=== PATIENT | male | born 1960 | race Caucasian/White ===

== ENCOUNTER → 2016-12-22 | Outpatient (CLI) | payer BC ==
[~2016-12-22] MED LIST: IOHEXOL 240 MG/ML 50ML VIAL. PO ONE; IOHEXOL 300 MG/ML 75 ML VIAL IV ONE
--- NOTE | 2016-12-22 11:06 | RAD ---
INDICATION: ESOPHAGEAL CARCINOMA COMPARISON: None. TECHNIQUE: Axial CT images were obtained through the chest, abdomen and pelvis. Intravenous contrast was utilized. FINDINGS: Chest: Mild cystic changes within the lungs. No evidence of pneumothorax. Calcified granulomas. No focal airspace consolidation to suggest pneumonia. Right mid lung pulmonary nodule anteriorly, 4 mm. Small pericardial fluid. Thoracic aorta is not dilated. Mild coronary artery calcific atherosclerosis. Mild prominence of esophageal wall but not well evaluated on this exam. Abdomen and pelvis: Abdominal aorta is not aneurysmal. Foci of calcific atherosclerosis are seen. No intrahepatic bile duct dilation. No definite worrisome hepatic mass. No peripancreatic edema. Splenic calcified granulomas. Nodular thickening of left adrenal gland, measures up to about 13 mm in thickness. Mildly prominent left extrarenal pelvis. Kidneys enhance symmetrically. Subcentimeter tiny right renal lesion, too small to characterize but a very commonly seen finding. Urinary bladder largely decompressed. Wall appears prominent but could be from decompression. Prostate calcifications. The appendix is not grossly dilated. No dilated loops of bowel suggest obstruction. Tiny fat-containing umbilical hernia. Degenerative changes spine. Subcentimeter sclerotic focus left pelvis. Mild superior endplate compression deformity or Schmorl's node at T11. IMPRESSION: Prominence of the esophageal wall is seen. Could be related to the patient's suspected esophageal neoplasm but not well evaluated on this exam. There are couple of small pulmonary nodules identified on the right measuring up to about 4 mm. Given the patient's history follow-up will be needed to ensure no growth. Nodular thickening of the left adrenal gland. Indeterminate in nature on this exam. If more complete characterization is desired adrenal protocol MRI could further evaluate. Urinary bladder is largely decompressed with prominent wall. This prominence of the wall could be secondary to lack of distention but would still correlate with symptoms in the region to ensure that there is not a pathologic process such as cystitis. PQRS Compliance Statement: One or more of the following individualized dose reduction techniques were utilized for this examination: 1. Automated exposure control 2. Adjustment of the mA and/or kV according to patient size 3. Use of iterative reconstruction technique
--- NOTE | 2016-12-22 12:39 | RAD ---
Radionuclide bone scan, 12/22/2016: History: Staging esophageal cancer Whole body imaging was performed following an IV injection of 27 mCi of technetium 99m MDP. No previous bone scan is available for comparison purposes. Activity of the radionuclide about the skeleton the major joints is symmetric. Minimally increased activity at both shoulders, elbows and wrists is compatible with arthritis. Minimally increased activity at the upper sternal level is probably due to degenerative change at the sternomanubrial articulation. Normal activity is present in both kidneys and the bladder. IMPRESSION: No specific evidence of osseous metastatic disease.
== END | disposition home or self-care (01) ==
LOC: NM 08:08
PROVIDERS: ATTEND Internal Medicine Hematology & Oncology
DX: C15.9 Malignant neoplasm of esophagus, unspecified (principal)
CPT/HCPCS: 71260; 74177; 78306; 96374; A9503; Q9966; Q9967

== ENCOUNTER → 2017-02-08 | Outpatient (CLI) | payer BC ==
[~2017-02-08] MED LIST changes: +ASPI-482 PO; +ATOR20TA58 PO; +CINN500C2 PO; +FISH1CAP PO; -IOHEXOL 240 MG/ML 50ML VIAL. PO ONE; -IOHEXOL 300 MG/ML 75 ML VIAL IV ONE; +LISI-334 PO; +METF-620 PO; +OMEP40CA5 PO; +SUCR1TAB35 PO
--- NOTE | 2017-02-08 15:16 | RESP ---
DATE OF SERVICE: 02/08/2017 The patient's FVC was 4.5, which is 100% predicted, FEV1 was 3.6, which is 107% predicted, the FEV1/FVC ratio was normal. No bronchodilators were given. Total lung capacity was normal at 107% predicted, residual volume 127% predicted. Diffusion capacity 119% predicted. IMPRESSION: 1. No evidence of any obstructive airway disease. 2. No bronchodilators were given. 3. Lung volumes with mild air trapping. 4. Normal diffusion capacity. SHARYN MONAE MD DR: KUSUM/fantasma JOB#: [id number] / [id number] TRAVIS Prado MD
== END | disposition home or self-care (01) ==
LOC: PF 08:10
PROVIDERS: ATTEND Thoracic Surgery (Cardiothoracic Vascular Surgery)
DX: Z01.818 Encounter for other preprocedural examination (principal)
CPT/HCPCS: 94010; 94729

== ENCOUNTER → 2017-02-22 | Outpatient (CLI) | payer BC | END | disposition home or self-care (01) | LOC: ECHO 08:17 | DX: Z01.810 Encounter for preprocedural cardiovascular examination (principal); I10 Essential (primary) hypertension; E78.5 Hyperlipidemia, unspecified | CPT/HCPCS: 78815; 93306; A9552 ==

== ENCOUNTER → 2017-03-05 | Outpatient (CLI) | payer BC ==
[2017-03-05 09:00] LABS: ADD MAN DIFF? NO; BASO % 0 % (0-3); EOS % 1 % (0-3); HEMATOCRIT 38.4 % (39.0-53.0); LYMPH # 0.4 x10^3/uL (1.0-4.8); LYMPH % 15 % (24-48); MEAN CORPUSCULAR HEMOGLOBIN 32 pg (25-35); MEAN CORPUSCULAR HGB CONC 34 g/dL (31-37); MEAN CORPUSCULAR VOLUME 95 fL (79-100); MONO # 0.5 x10^3/uL (0.0-1.1); MONO % 16 % (0-9); NEUT # 1.9 x10^3uL (1.8-7.7); NEUT % 67 % (31-73); PLATELET COUNT 118 x10^3/uL (140-400); RED BLOOD COUNT 4.05 x10^6/uL (4.30-5.70); WHITE BLOOD COUNT 2.9 x10^3/uL (4.0-11.0)
[2017-03-05 09:09] LABS: PARTIAL THROMBOPLASTIN TIME 24 SEC (24-38); PROTHROMBIN TIME PATIENT 12.7 SEC (11.7-14.0)
[2017-03-05 09:21] LABS: ALBUMIN/GLOBULIN RATIO 1.3 (1.0-1.7); ALK PHOS 46 U/L (46-116); ALT (SGPT) 45 U/L (16-63); ANION GAP 6 (6-14); AST (SGOT) 14 U/L (15-37); BLOOD UREA NITROGEN 17 mg/dL (8-26); BUN/CREATININE RATIO 34 (6-20); CARBON DIOXIDE 31 mmol/L (21-32); CHLORIDE 104 mmol/L (98-107); CREATININE 0.5 mg/dL (0.7-1.3); DIRECT BILIRUBIN 0.1 mg/dL (0.0-0.2); GFR 170.8; GLUCOSE 132 mg/dL (70-99); POTASSIUM 3.9 mmol/L (3.5-5.1); SODIUM 141 mmol/L (136-145); TOTAL BILIRUBIN 0.4 mg/dL (0.2-1.0); TOTAL PROTEIN 7.2 g/dL (6.4-8.2)
[2017-03-05 19:18] LABS: MRSA BY PCR Negative (Negative)
[2017-03-07 03:13] LABS: HEMOGLOBIN A1C 5.4 % (4.8-5.6)
== END | disposition home or self-care (01) ==
LOC: SURGPAT 08:27
DX: Z01.818 Encounter for other preprocedural examination (principal); C15.9 Malignant neoplasm of esophagus, unspecified
CPT/HCPCS: 36415; 80053; 80076; 83036; 85025; 85610; 85730; 87641

== ENCOUNTER → 2017-03-30 | Outpatient (CLI) | payer BC | END | disposition home or self-care (01) | LOC: RAD 13:06 | DX: C15.9 Malignant neoplasm of esophagus, unspecified (principal) | CPT/HCPCS: 71046 ==

== ENCOUNTER → 2017-04-05 | Outpatient (CLI) | payer BC ==
[~2017-04-05] MED LIST changes: -ASPI-482 PO; -ATOR20TA58 PO; +BARIUM SULFATE 340 GM SUSPENSION. PO; +BARIUM SULFATE 96% 397 GM ENEMA. PR; -CINN500C2 PO; +CONTRAST GIVEN MC; -FISH1CAP PO; +IOHEXOL 300 MG/ML 100ML VIAL.; -LISI-334 PO; -METF-620 PO; -OMEP40CA5 PO; -SUCR1TAB35 PO
[2017-04-05] MEDS: IOHEXOL 300 MG/ML 100ML VIAL. PO ×2 (09:45)
== END | disposition home or self-care (01) ==
LOC: RAD 09:27
DX: C15.9 Malignant neoplasm of esophagus, unspecified (principal); Z85.01 Personal history of malignant neoplasm of esophagus
CPT/HCPCS: 71046; 74220; Q9967

== ENCOUNTER → 2017-04-12 | Outpatient (CLI) | payer BC | END | disposition home or self-care (01) | LOC: RAD 12:18 | DX: Z98.890 Other specified postprocedural states (principal) | CPT/HCPCS: 71046 ==

== ENCOUNTER → 2017-04-27 | Outpatient (CLI) | payer BC | END | disposition home or self-care (01) | LOC: RAD 13:59 | DX: C15.9 Malignant neoplasm of esophagus, unspecified (principal); R91.8 Other nonspecific abnormal finding of lung field | CPT/HCPCS: 71046 ==

== ENCOUNTER → 2017-05-18 | Outpatient (CLI) | payer BC | END | disposition home or self-care (01) | LOC: RAD 12:04 | DX: R91.8 Other nonspecific abnormal finding of lung field (principal); Z98.890 Other specified postprocedural states | CPT/HCPCS: 71046 ==

== ENCOUNTER → 2017-07-16 | Outpatient (CLI) | payer BC ==
[2017-07-16] MEDS: IOHEXOL 240 MG/ML 50ML VIAL. PO (08:30)
[2017-07-16] MEDS: IOHEXOL 300 MG/ML 100ML VIAL. IV (09:38)
== END | disposition home or self-care (01) ==
LOC: CT 07:39
DX: C15.9 Malignant neoplasm of esophagus, unspecified (principal); J18.1 Lobar pneumonia, unspecified organism; J90 Pleural effusion, not elsewhere classified; I70.0 Atherosclerosis of aorta
CPT/HCPCS: 71260; 74177; Q9966; Q9967

== ENCOUNTER → 2017-10-12 | Outpatient (CLI) | payer BC ==
[2017-03-27 13:01] VITALS: BP 115/62
[~2017-10-12] MED LIST changes: +AMOX1TAB58 FT; +ASPI-482 PO; +ATOR20TA58 PO; -BARIUM SULFATE 340 GM SUSPENSION. PO; -BARIUM SULFATE 96% 397 GM ENEMA. PR; +CINN500C2 PO; -CONTRAST GIVEN MC; +FISH1CAP PO; +IOHEXOL 240 MG/ML 50ML VIAL. PO ONE; -IOHEXOL 300 MG/ML 100ML VIAL.; +IOHEXOL 300 MG/ML 100ML VIAL. IV ONE; +LISI-334 PO; +METF10003 PO; +METO25TA4 PO; +OMEP40CA5 PO; +OXYC5TAB88 FT; +PANT40TA5 FT; +SUCR1TAB35 PO
--- NOTE | 2017-10-12 14:41 | RAD ---
CT of the chest, abdomen, and pelvis with IV and oral contrast 10/12/2017 INDICATION: History of esophageal cancer. COMPARISON STUDY: CT of the chest abdomen and pelvis July 16, 2017 TECHNIQUE: Multidetector CT imaging of the chest, abdomen, and pelvis performed following the administration of IV and enteric contrast. FINDINGS: CHEST: No pneumothorax or pleural effusion is identified. No acute focal consolidative infiltrate is identified. Calcified granuloma noted in the left lower lobe. Calcified granulomata in the right upper lobe. Previously seen opacity in the right upper lobe is resolved. Heart size is normal. Trace pericardial effusion noted. There are postoperative changes following esophagectomy and gastric pull-up. No pathologically enlarged mediastinal adenopathy is seen. Abdomen and pelvis: There is nodular thickening of the right adrenal gland. This has increased in prominence since comparison study from June 2017. Concern measures approximately 2.3 x 1.3 x 3.3 cm previously measuring 1.8 x 0.8 x 1.8 cm. Finding raises concern for possibility of metastatic disease. The Liver, gallbladder, spleen, pancreas are grossly unremarkable in appearance. Kidneys are unremarkable in appearance. Left adrenal gland is unremarkable. The prostate is enlarged and contains coarse calcifications. This stable from prior study. The bladder is grossly unremarkable. No free fluid or free air seen in the abdomen or pelvis. There is no bowel obstruction. There is a new compression fracture involving the T9 vertebral body. There is approximately 50 percent loss of vertebral body height. No significant bony retropulsion is seen. Areas of sclerosis are noted however. . No erosive changes are identified. Chronic compression deformity of the T11 vertebral body again noted. IMPRESSION: 1. Interval enlargement of a nodular process involving the right adrenal gland. Finding raises possibility of metastatic disease. 2. Interval development of T9 compression fracture. Correlate with history of trauma. No definitive evidence of metastatic disease is identified, though this cannot be excluded given patient history. PET/CT may be helpful for further evaluation. 3. Previously seen right-sided pulmonary opacities have resolved 4. Stable post surgical changes following esophagectomy and gastric pull-up CT DOSING PQRS STATEMENT: One or more of the following individualized dose reduction techniques were utilized for this examination: 1. Automated exposure control 2. Adjustment of the mA and/or kV according to patient size 3. Use of iterative reconstruction technique Electronically signed by: Des Wynn MD (10/12/2017 2:38 PM) [id number]
== END | disposition home or self-care (01) ==
LOC: CT 10:24
PROVIDERS: ATTEND Internal Medicine Hematology & Oncology
DX: E27.8 Other specified disorders of adrenal gland (principal); M48.54XA Collapsed vertebra, not elsewhere classified, thoracic region, initial encounter for fracture; I10 Essential (primary) hypertension; E11.9 Type 2 diabetes mellitus without complications; E78.5 Hyperlipidemia, unspecified; K21.9 Gastro-esophageal reflux disease without esophagitis; E87.6 Hypokalemia; Z87.891 Personal history of nicotine dependence; Z85.01 Personal history of malignant neoplasm of esophagus; Z68.23 Body mass index [BMI] 23.0-23.9, adult; Z82.49 Family history of ischemic heart disease and other diseases of the circulatory system; Z83.3 Family history of diabetes mellitus
CPT/HCPCS: 71260; 74177; Q9966; Q9967

== ENCOUNTER → 2017-10-18 | Outpatient (CLI) | payer BC ==
[2017-03-27 13:01] VITALS: BP 115/62
[~2017-10-18] MED LIST changes: -IOHEXOL 240 MG/ML 50ML VIAL. PO ONE; -IOHEXOL 300 MG/ML 100ML VIAL. IV ONE
--- NOTE | 2017-10-18 13:52 | RAD ---
FDG tumor localization scan, PET/CT, 10/18/2017: History: Restaging esophageal cancer Following IV injection of 15.0 mCi of 18 F-FDG imaging was performed from the skull base to the proximal thighs. The noncontrast CT component was performed for attenuation correction and anatomic localization purposes rather than for primary diagnosis. The patient's blood glucose level the time of injection was 91 MG/DL. Comparison is made to a study from 02/22/2017. Physiologic activity is evident in the neck. A small focus of increased activity along the medial aspect of the right shoulder joint is probably arthritic. Since 02/22/2017 there has been resection of the patient's known esophageal neoplasm with a gastric pull-up type of procedure. There is normal activity related to the stomach. No hypermetabolic mediastinal or hilar adenopathy is seen. There are calcified granulomata in the lungs. No hypermetabolic pulmonary lesion is seen. Normal GI tract and urinary tract activity is present in the abdomen and pelvis. There is a 2.3 cm hypermetabolic right adrenal nodule which was not present on the previous PET/CT study. It demonstrates a maximum SUV of 8.2. An adrenal metastasis is suspected. No abnormal left adrenal activity is seen. There is mildly increased FDG uptake at the T9 level. This corresponds to a new vertebral compression fracture delineated on the 10/12/2017 CT exam. This abnormal FDG uptake is nonspecific and could reflect a benign or pathologic fracture. A small focus of increased FDG uptake is also seen in the left clavicle. The CT component does not demonstrate a definite bony abnormality. Diagnostic considerations include an ankle injury or early metastasis. No other osseous abnormality is detected. IMPRESSION: 1. Interval esophagectomy with gastric pull-up procedure. No mediastinal tumor recurrence is evident. 2. New hypermetabolic right adrenal nodule suggesting a metastasis. 3. Mildly hypermetabolic T9 vertebral compression fracture which could be benign or pathologic. 4. Small nonspecific left clavicular hypermetabolic focus.
== END | disposition home or self-care (01) ==
LOC: PETSC 10:54
PROVIDERS: ATTEND Internal Medicine Hematology & Oncology
DX: M48.54XA Collapsed vertebra, not elsewhere classified, thoracic region, initial encounter for fracture (principal); I10 Essential (primary) hypertension; E11.9 Type 2 diabetes mellitus without complications; E78.5 Hyperlipidemia, unspecified; E87.6 Hypokalemia; J44.9 Chronic obstructive pulmonary disease, unspecified; K21.9 Gastro-esophageal reflux disease without esophagitis; Z68.23 Body mass index [BMI] 23.0-23.9, adult; Z85.01 Personal history of malignant neoplasm of esophagus; Z82.49 Family history of ischemic heart disease and other diseases of the circulatory system; Z83.3 Family history of diabetes mellitus
CPT/HCPCS: 78815; A9552

== ENCOUNTER → 2017-10-23 | Outpatient (CLI) | payer BC ==
[2017-03-27 13:01] VITALS: BP 115/62
[~2017-10-23] MED LIST changes: +GADOBUTROL 7.5 MMOL/7.5 ML VIAL IV ONE; +HYDR-2758 PO; +LISI1TAB3 PO; +METO10TA81 PO
--- NOTE | 2017-10-23 11:44 | RAD ---
MRI Thoracic Spine without and with contrast History: Abnormal T9 on PET scan, back pain, esophageal cancer Technique: Multiplanar, multi sequential pre and postcontrast MR imaging was performed of the thoracic spine. Contrast: 6 cc Gadavist Comparison: CT exam July 16, 2017 and October 18, 2017 PET/CT Findings: There is T9 compression fracture with edema signified by STIR hyperintense and T1 hypointense signal, no osseous expansion or osseous retropulsion. There is associated enhancement at site of marrow edema. There is also minimal edema of the inferior T8 endplate without significant height loss or osseous retropulsion. There is old superior T11 compression deformity without osseous retropulsion. Thoracic cord caliber is within normal limits without focal signal abnormality or enhancement. There is no enhancement in the intervertebral disc spaces. There is no significant focal posterior disc abnormality. There has been gastric pull-through procedure better seen on CT. There is again nodularity of the right adrenal gland. Impression: 1. There is recent T9 compression fracture. While there is some associated enhancement, findings may be reactive rather than representing focal mass as there is no significant osseous expansion and no defined margin. There is trace edema of the inferior T8 endplate probably reactive in etiology. 2. There is right adrenal nodularity. Electronically signed by: Caesar Chauhan MD (10/23/2017 11:41 AM) [id number]
== END | disposition home or self-care (01) ==
LOC: MRI 10:16
PROVIDERS: ATTEND Internal Medicine Hematology & Oncology
DX: M48.54XA Collapsed vertebra, not elsewhere classified, thoracic region, initial encounter for fracture (principal); I10 Essential (primary) hypertension; E11.9 Type 2 diabetes mellitus without complications; E78.5 Hyperlipidemia, unspecified; K21.9 Gastro-esophageal reflux disease without esophagitis; J44.9 Chronic obstructive pulmonary disease, unspecified; Z68.23 Body mass index [BMI] 23.0-23.9, adult; Z87.891 Personal history of nicotine dependence; Z85.01 Personal history of malignant neoplasm of esophagus; Z82.49 Family history of ischemic heart disease and other diseases of the circulatory system; Z83.3 Family history of diabetes mellitus
CPT/HCPCS: 72146; A9585

== ENCOUNTER 2017-10-24 06:45 | Outpatient (CLI) | payer BC ==
[~2017-10-24] VITALS: Ht 167.6 cm; Wt 61.7 kg
[~2017-10-24 06:45] MED LIST changes: -GADOBUTROL 7.5 MMOL/7.5 ML VIAL IV ONE; -HYDR-2758 PO; -LISI1TAB3 PO; -METF10003 PO; +METF10007 PO; -METO10TA81 PO
[2017-10-24] MEDS ORDERED: METO10TA81 PO (07:43)
[2017-10-24] MEDS ORDERED: HYDR-2758 PO (07:43)
[2017-10-24] MEDS ORDERED: LISI1TAB3 PO (07:43)
[2017-10-24 07:44] VITALS: BP 140/77
[2017-10-24] MEDS ORDERED: LIDOCAINE WITH 8.4% SOD BICARB 3 ML DISP.SYRIN. ONE (07:58)
[2017-10-24 08:06] LABS: BASO % 1 % (0-3); EOS % 1 % (0-3); HEMOGLOBIN 14.1 g/dL (13.0-17.5); LYMPH # 0.5 x10^3/uL (1.0-4.8); LYMPH % 22 % (24-48); MEAN CORPUSCULAR HEMOGLOBIN 31 pg (25-35); MEAN CORPUSCULAR HGB CONC 34 g/dL (31-37); MEAN CORPUSCULAR VOLUME 89 fL (79-100); MONO # 0.3 x10^3/uL (0.0-1.1); MONO % 11 % (0-9); NEUT # 1.6 x10^3uL (1.8-7.7); NEUT % 66 % (31-73); PLATELET COUNT 153 x10^3/uL (140-400); RED BLOOD COUNT 4.61 x10^6/uL (4.30-5.70); RED CELL DISTRIBUTION WIDTH 13.4 % (11.5-14.5); WHITE BLOOD COUNT 2.4 x10^3/uL (4.0-11.0)
[2017-10-24 08:24] LABS: PROTHROMBIN TIME PATIENT 12.8 SEC (11.7-14.0)
[2017-10-24] MEDS ORDERED: MIDAZOLAM HCL/PF 2 MG/2 ML VIAL. ONE (08:32)
[2017-10-24] MEDS ORDERED: fentaNYL PF VIAL 100 MCG/2 ML VIAL ONE (08:32)
[2017-10-24] MEDS ORDERED: fentaNYL PF VIAL 100 MCG/2 ML VIAL IV ONE (09:00)
[2017-10-24] MEDS ORDERED: LIDOCAINE WITH 8.4% SOD BICARB 3 ML DISP.SYRIN. IJ ONE (09:00)
[2017-10-24] MEDS ORDERED: MIDAZOLAM HCL/PF 2 MG/2 ML VIAL. IV ONE (09:00)
[2017-10-24 09:10] VITALS: BP 156/72
[2017-10-24 09:20] VITALS: BP 140/72
[2017-10-24 09:35] VITALS: BP 132/82
[2017-10-24 09:50] VITALS: BP 144/68
[2017-10-24] MEDS ORDERED: KETOROLAC 30 MG/ML VIAL. IV ONE (10:00)
[2017-10-24 10:05] VITALS: BP 144/68
--- NOTE | 2017-10-24 11:59 | RAD ---
Fluoroscopically guided biopsy, T9 vertebral body 10/24/2017 Indication: T9 compression fracture. Patient reports a relatively mild pain. History of esophageal cancer with possible adrenal metastases. Questionable pathologic nature fracture. Discussion: The risks and benefits of the procedure were discussed the patient. Informed consent was obtained. The patient was brought to the fluoroscopy suite and placed in the prone position. A timeout procedure was performed. The posterior thorax was prepped and draped using sterile barrier technique. The T9 vertebra was identified fluoroscopically. A left sided transpedicular approach was used. A 11-gauge trocar needle was advanced in a transpedicular fashion into the posterior T9 vertebral body. A core biopsy needle was advanced into the more central vertebral body and 3 passes. Aspirates were also obtained. Samples were placed in formalin. The guiding needle was removed. Manual pressure was held. Sterile dressing was applied. The procedures performed under conscious sedation including continuous cardiopulmonary monitoring via dedicated sedation nurse. [id number] sedation time: 30 minutes Fluoroscopy time: 5.3 MINUTES Dose area product: 1363 uGycm2 Impression: T9 vertebral body biopsy as described
--- NOTE | 2017-10-26 09:11 | PATHOLOGY ---
[facility] Accession Number: [id number] . 01 Material submitted: . T9 BONE BIOPSY . 01 Clinical history: . Adrenal cancer . 02 Diagnosis: T9 bone biopsy: - Blood clot and small segments of bone containing fatty marrow and showing focal fibrosis and hemorrhage. (JPM:aleksandr; 10/25/2017) QMS/10/25/2017 . 02 Comment: There is no evidence of metastatic carcinoma. . 02 Electronically signed: . Sky Tsai MD, Pathologist NPI- [id number] . 01 Gross description: . The specimen is received in formalin, labeled "Adeel Pierson and T9 bone biopsy", consist of an aggregate of dark brown clot measuring 2.0 x 1.7 x 0.6 cm containing bone fragments measuring 0.7 x 0.3 x 0.1 cm in aggregate. The specimen is entirely submitted in A1-A2. (A1 = bone after decalcification and A2 = clot) ([facility]; 10/24/2017) SHS/SHS . 02 Pathologist provided ICD-10: M89.8X8 . 02 CPT . 772751, [id number] Performed at: 01 [facility] [address], [place] [id number] MD Chaz Fofana MD Phone: [phone] Performed at: 02 [facility] [address] [place], [place] [id number] MD Sky Tsai MD Phone: [phone]
== END 2017-10-24 10:35 | disposition home or self-care (01) ==
LOC: INTRAD 06:45
PROVIDERS: ATTEND Internal Medicine Hematology & Oncology
DX: M48.54XA Collapsed vertebra, not elsewhere classified, thoracic region, initial encounter for fracture (principal); M54.6 Pain in thoracic spine; Z85.01 Personal history of malignant neoplasm of esophagus; Z79.899 Other long term (current) drug therapy; Z79.01 Long term (current) use of anticoagulants
CPT/HCPCS: 20225; 36415; 77002; 85025; 85610; 85730; 88307; 88311; 99152; 99153; J2250; J3010; 76942

== ENCOUNTER 2017-10-31 06:42 | Outpatient (CLI) | payer BC ==
[2017-10-31] VITALS (11 sets, daily range): BP systolic 134–158; BP diastolic 74–85
[~2017-10-31] VITALS: Ht 167.6 cm; Wt 59.0 kg
[~2017-10-31 06:42] MED LIST changes: +HYDR-2758 PO; +LISI1TAB3 PO; +METO10TA81 PO
[2017-10-31] MEDS ORDERED: MIDAZOLAM HCL/PF 2 MG/2 ML VIAL. ONE (07:54)
[2017-10-31] MEDS ORDERED: fentaNYL PF VIAL 100 MCG/2 ML VIAL ONE (07:54)
[2017-10-31] MEDS ORDERED: LIDOCAINE WITH 8.4% SOD BICARB 3 ML DISP.SYRIN. ONE (08:26)
[2017-10-31] MEDS ORDERED: IOHEXOL 240 MG/ML 50ML VIAL. ONE (08:54)
[2017-10-31] MEDS ORDERED: IOHEXOL 240 MG/ML 50ML VIAL. IJ ONE (09:15)
[2017-10-31] MEDS ORDERED: MIDAZOLAM HCL/PF 2 MG/2 ML VIAL. IV ONE (09:15)
[2017-10-31] MEDS ORDERED: CONTRAST GIVEN. MC PRN (09:15)
[2017-10-31] MEDS ORDERED: LIDOCAINE WITH 8.4% SOD BICARB 3 ML DISP.SYRIN. IJ ONE (09:15)
[2017-10-31] MEDS ORDERED: fentaNYL PF VIAL 100 MCG/2 ML VIAL IV ONE (09:15)
--- NOTE | 2017-10-31 15:05 | RAD ---
10/31/2017 Fluoroscopically guided kyphoplasty, T9 Indication:T9 compression fracture. Persistent pain secondary to conservative treatment measures. Pain limits activities of daily living. Mechanism of injury consistent with pathologic compression fractures secondary to decreased bone mineral density Fluoro time: 8.6 MINUTES Dose area product: 687 Gycm2 Moderate sedation: The patient was appropriately monitored by a qualified independent observer throughout the course of the moderate sedation. [id number] sedation time:45 minutes Consent: The risks and benefits of the procedure were discussed with the patient. Informed consent was obtained. The patient was brought to the fluoroscopy suite and placed in the prone position. A timeout procedure was performed. Preprocedural antibiotics were administered. Procedure: The overlying skin was prepped and draped in the usual sterile fashion. All elements of maximal sterile barrier technique including the use of a cap, mask, sterile gown, sterile gloves, large sterile sheet, appropriate hand hygiene, and 2% chlorhexidine for cutaneous antisepsis (or acceptable alternative antiseptic per current guidelines) were followed for this procedure. Using a left transpedicular approach, and direct fluoroscopic guidance, a trocar needle was advanced to the posterior third of the targeted vertebral body. Vertebral augmentation balloon was then coaxially introduced through the needle, into the more central vertebral body and was deployed. A curved cement delivery needle was advanced into the contralateral vertebral body. Contrast opacified polymethylmethacrylate was then very slowly and carefully introduced through the vertebral augmentation needle, using strict fluoroscopic control. Once adequate filling had been achieved the needles were removed and manual pressure was held. No significant extravasation or complication was identified. Sterile dressing was applied. Patient tolerated the procedure well, without apparent complication. Impression: Fluoroscopically guided kyphoplasty, T9
== END 2017-10-31 12:16 | disposition home or self-care (01) ==
LOC: INTRAD 06:42
PROVIDERS: ATTEND Internal Medicine Hematology & Oncology
DX: M48.54XA Collapsed vertebra, not elsewhere classified, thoracic region, initial encounter for fracture (principal); M54.6 Pain in thoracic spine
CPT/HCPCS: 22513; 99152; 99153; C1758; C1892; J0690; J2250; J3010; Q9966